=== PATIENT | male | born 1990 | race Caucasian/White ===

== ENCOUNTER → 2016-08-17 | Outpatient (CLI) | payer OTHER ==
[2016-01-16 03:23] VITALS: BP 157/84
[~2016-08-17] MED LIST: IOHEXOL 240 MG/ML 50ML VIAL. PO ONE; IOHEXOL 300 MG/ML 75 ML VIAL. IV ONE; IOHEXOL 350 MG/ML 50 ML VIAL. IV ONE; PANT40TA3 PO
[2016-08-17 16:56] LABS: BASO % 0 % (0-3); EOS % 1 % (0-3); HEMATOCRIT 43.3 % (39.0-53.0); HEMOGLOBIN 14.6 g/dL (13.0-17.5); LYMPH # 1.7 x10^3/uL (1.0-4.8); LYMPH % 33 % (24-48); MEAN CORPUSCULAR HEMOGLOBIN 29 pg (25-35); MEAN CORPUSCULAR HGB CONC 34 g/dL (31-37); MEAN CORPUSCULAR VOLUME 85 fL (79-100); MONO # 0.3 x10^3/uL (0.0-1.1); MONO % 6 % (0-9); NEUT # 3.2 x10^3uL (1.8-7.7); NEUT % 61 % (31-73); PLATELET COUNT 242 x10^3/uL (140-400); RED BLOOD COUNT 5.08 x10^6/uL (4.30-5.70); WHITE BLOOD COUNT 5.3 x10^3/uL (4.0-11.0)
[2016-08-17 17:05] LABS: ALBUMIN 4.6 g/dL (3.4-5.0); ALBUMIN/GLOBULIN RATIO 1.5 (1.0-1.7); CALCIUM 9.1 mg/dL (8.5-10.1); CREATININE 1.1 mg/dL (0.7-1.3); GFR 82.2; POTASSIUM 3.7 mmol/L (3.5-5.1); TOTAL BILIRUBIN 0.7 mg/dL (0.2-1.0); TOTAL PROTEIN 7.7 g/dL (6.4-8.2)
--- NOTE | 2016-08-17 18:34 | RAD ---
PROCEDURE CT abdomen and pelvis with contrast. HISTORY Epigastric abdominal pain with nausea TECHNIQUE Helical CT imaging of the abdomen and pelvis is performed after oral contrast and 75 cc Omnipaque 300 IV contrast. PQRS: One or more the following individualized dose reduction techniques were utilized for the study: 1. Automated exposure control. 2. Adjustment of the mA and/or kV according to patient size. 3. Use of iterative reconstruction technique. COMPARISON None. FINDINGS Lung bases are clear. Cardiac size normal. The liver, gallbladder, spleen, pancreas, adrenal glands, kidneys, and abdominal aortic caliber are normal. Stomach unremarkable. No dilated small bowel. The appendix is normal. No colon wall thickening. Contrast reaches rectosigmoid indicating there is no bowel obstruction. There is no abdominal adenopathy. There are subcentimeter mesenteric lymph nodes. The urinary bladder is normal, mildly distended. Prostate size normal. No pelvic free fluid. Bilateral inguinal lymph nodes are probably reactive. No acute bone abnormality. IMPRESSION No acute abdominal or pelvic abnormality. Electronically signed by: Mars Fermin MD (Aug 17, 2016 18:32:54)
== END | disposition home or self-care (01) ==
LOC: CT 16:29
PROVIDERS: ATTEND Family Medicine
DX: R10.84 Generalized abdominal pain (principal)
CPT/HCPCS: 36415; 74177; 80053; 82150; 83690; 85027; Q9966

== ENCOUNTER 2017-10-08 02:55 | Emergency (ER) | payer OTHER ==
[~2017-10-08] VITALS: Ht 180.3 cm; Wt 69.4 kg
[~2017-10-08 02:55] MED LIST changes: -IOHEXOL 240 MG/ML 50ML VIAL. PO ONE; -IOHEXOL 300 MG/ML 75 ML VIAL. IV ONE; -IOHEXOL 350 MG/ML 50 ML VIAL. IV ONE
[2017-10-08 03:08] VITALS: BP 142/88
--- NOTE | 2017-10-08 03:18 | PHYS DOC ---
Past History Past Medical History: No Pertinent History Additional Past Medical Histor: chest pain, hypokalemia Past Surgical History: No Surgical History Smoking: Non-smoker Alcohol Use: Occasionally Drug Use: None Adult General Chief Complaint Chief Complaint: INSECT BITE HPI HPI 27-year-old otherwise healthy male presents with a insect bite on his right inner thigh. He states he's been out at a shooting range further management been some bugs. He is concerned that the bite is red.[] Review of Systems Review of Systems Review of systems is as above otherwise unremarkable. Allergies Allergies Allergies Coded Allergies Type Severity Reaction Last Updated Verified No Known Drug Allergies 08/17/16 No Physical Exam Physical Exam Constitutional: Well developed, well nourished, no acute distress, non-toxic appearance. [] HENT: Normocephalic, atraumatic, bilateral external ears normal, oropharynx moist, no oral exudates, nose normal. [] Eyes: PERRLA, EOMI, conjunctiva normal, no discharge. [] Neck: Normal range of motion, no tenderness, supple, no stridor. [] Cardiovascular:Heart rate regular rhythm, no murmur [] Lungs & Thorax: Bilateral breath sounds clear to auscultation [] Abdomen: Bowel sounds normal, soft, no tenderness, no masses, no pulsatile masses. [] Skin: There is a dime size area of redness on the right upper inner thigh no central necrosis no induration no fluctuance no streaking. [] Back: No tenderness, no CVA tenderness. [] Extremities: No tenderness, no cyanosis, no clubbing, ROM intact, no edema. [] Neurologic: Alert and oriented X 3, normal motor function, normal sensory function, no focal deficits noted. [] Psychologic: Affect normal, judgement normal, mood normal. [] Current Patient Data Vital Signs Vital Signs Date Time Temp Pulse Resp B/P (MAP) Pulse Ox O2 Delivery O2 Flow Rate FiO2 10/08/17 03:08 98.1 113 20 97 EKG EKG [] Radiology/Procedures Radiology/Procedures [] Course & Med Decision Making Course & Med Decision Making Pertinent Labs and Imaging studies reviewed. (See chart for details) [] Dragon Disclaimer Dragon Disclaimer This electronic medical record was generated, in whole or in part, using a voice recognition dictation system. Departure Departure: Impression: Primary Impression: Insect bite Disposition: HOME, SELF-CARE Condition: STABLE Referrals: MONICA HINES DO (PCP) Patient Instructions: Insect Bite Additional Instructions: Return to the emergency department with any new or concerning symptoms. Problem Qualifiers Primary Impression: Insect bite Encounter type: initial encounter Qualified Codes: W57.XXXA - Bitten or stung by nonvenomous insect and other nonvenomous arthropods, initial encounter ELÍAS SEAMAN DO Oct 08, 2017 03:18
== END 2017-10-08 03:25 | disposition home or self-care (01) ==
LOC: ER 02:55
DX: S70.361A Insect bite (nonvenomous), right thigh, initial encounter (principal); W57.XXXA Bitten or stung by nonvenomous insect and other nonvenomous arthropods, initial encounter; Y93.89 Activity, other specified; Y99.8 Other external cause status; Y92.89 Other specified places as the place of occurrence of the external cause
CPT/HCPCS: 99281

== ENCOUNTER 2020-08-17 00:19 | Emergency (ER) | payer OTHER ==
[~2020-08-17] VITALS: Ht 180.3 cm; Wt 66.0 kg
--- NOTE | 2020-08-17 02:29 | PHYS DOC ---
Past History Past Medical History: No Pertinent History Additional Past Medical Histor: chest pain, hypokalemia Past Surgical History: No Surgical History Smoking: Non-smoker Alcohol Use: Occasionally Drug Use: None Adult General HPI HPI Patient is an otherwise healthy 29-year-old male who presents with concerns of color change on his right arm. States he did get some sun and had a sunburn but thought that the color was strange. States that it almost seemed like a dark red or purple. States that it was like that for couple hours and then went away. States that now is just light red and has some skin sloughing. Denies any recent travel, illnesses, fevers, chest pain, shortness of breath, abdominal pain, nausea, vomiting. Review of Systems Review of Systems Review of systems otherwise unremarkable except noted in HPI Allergies Allergies Allergies Coded Allergies Type Severity Reaction Last Updated Verified No Known Drug Allergies 08/17/16 No Physical Exam Physical Exam Constitutional: Well developed, well nourished, no acute distress, non-toxic appearance. [] Cardiovascular:Heart rate regular rhythm, no murmur [] Lungs & Thorax: Bilateral breath sounds clear to auscultation [] Abdomen: Bowel sounds normal, soft, no tenderness, no masses, no pulsatile masses. [] Skin: Warm, dry, no erythema, no rash. [] Back: No tenderness, no CVA tenderness. [] Extremities: Patient has mild redness and skin peeling on forearm and upper arm consistent with mild sunburn Neurologic: Alert and oriented X 3, normal motor function, normal sensory function, no focal deficits noted. [] Psychologic: Affect normal, judgement normal, mood normal. [] EKG EKG [] Radiology/Procedures Radiology/Procedures [] Heart Score C/O Chest Pain: No Risk Factors: Risk Factors: DM, Current or recent (<one month) smoker, HTN, HLP, family history of CAD, obesity. Risk Scores: Risk Factors: DM, Current or recent (<one month) smoker, HTN, HLP, family history of CAD, obesity. Course & Med Decision Making Course & Med Decision Making Patient is a 29-year-old male who presents with sunburn on right arm Vital signs not concerning. Physical exam noted above. Patient has mild sunburn on posterior right forearm and upper arm. Advised lotions and long sleeve shirts at home. Advised follow-up with primary care physician as needed. Gave return precautions to the ED. Patient grateful, verbalized understanding and agreed with plan of discharge. [] Dragon Disclaimer Dragon Disclaimer This electronic medical record was generated, in whole or in part, using a voice recognition dictation system. Departure Departure: Impression: Primary Impression: Sunburn Additional Impression: Rash and nonspecific skin eruption Disposition: 01 DC HOME SELF CARE/HOMELESS Condition: GOOD Referrals: MONICA HINES DO (PCP) Patient Instructions: Rash, [id number], Rashes-SportsMed, Sunburn, [id number] Additional Instructions: Please read all the attached information. Please use lotions to keep moisturized and longsleeve shirts until you follow-up with your primary care physician. Please call your primary care physician first thing in the morning to update on ED visit. Please come back to the emergency department immediately with new or concerning symptoms as discussed. Problem Qualifiers MATHEUS FLETCHER MD Aug 17, 2020 02:29
[2020-08-17 02:56] VITALS: BP 138/97
== END 2020-08-17 02:56 | disposition home or self-care (01) ==
LOC: ER 00:19
DX: L55.9 Sunburn, unspecified (principal); R21 Rash and other nonspecific skin eruption
CPT/HCPCS: 99281

== ENCOUNTER 2021-05-06 21:46 | Emergency (ER) | payer OTHER ==
[~2021-05-06] VITALS: Ht 180.3 cm; Wt 65.6 kg
--- NOTE | 2021-05-06 22:13 | PHYS DOC ---
Past History Past Medical History: Other Additional Past Medical Histor: chest pain, hypokalemia Past Surgical History: No Surgical History Smoking: Non-smoker Alcohol Use: Occasionally Drug Use: None Adult General Chief Complaint Chief Complaint: RAPID HEART RATE HPI HPI Patient sent otherwise healthy 30-year-old male with a past medical history of anxiety, who presents with a chief complaint of palpitations which started after drinking some C4 workout drink. States that a few hours ago he took a large dose as he was not working out and stated he did not feel it do anything so he took another dose. States that shortly after that he began feeling like his heart was racing. Denies any chest pain, shortness of breath, abdominal pain, nausea, vomiting. Review of Systems Review of Systems Review of systems otherwise unremarkable except noted in HPI Allergies Allergies Allergies Coded Allergies Type Severity Reaction Last Updated Verified No Known Drug Allergies 08/17/16 No Physical Exam Physical Exam Constitutional: Well developed, well nourished, no acute distress, non-toxic appearance. [] HENT: Normocephalic, atraumatic, bilateral external ears normal, oropharynx moist, no oral exudates, nose normal. [] Eyes: , conjunctiva normal, no discharge. [] Neck: Normal range of motion, no tenderness, supple, no stridor. [] Cardiovascular: Sinus tachycardia, rate of 125, QRS 92, QTc 429, no STEMI Lungs & Thorax: Bilateral breath sounds clear to auscultation [] Skin: Warm, dry, no erythema, no rash. [] Extremities: No tenderness, no cyanosis, no clubbing, ROM intact, no edema. [] Neurologic: Alert and oriented X 3, normal motor function, normal sensory function, no focal deficits noted. [] Psychologic: Affect normal, judgement normal, mood normal. [] EKG EKG [] Radiology/Procedures Radiology/Procedures [] Heart Score C/O Chest Pain: No Risk Factors: Risk Factors: DM, Current or recent (<one month) smoker, HTN, HLP, family history of CAD, obesity. Risk Scores: Risk Factors: DM, Current or recent (<one month) smoker, HTN, HLP, family history of CAD, obesity. Course & Med Decision Making Course & Med Decision Making Patient is a 30-year-old male who presents after drinking too much C4 stimulant preworkout supplement drink with palpitations Vital signs initially notable for tachycardia. Physical exam noted above. EKG noted above. Given Versed. On reassessment patient symptoms resolved, heart rate in the 90s and patient felt safe to discharge home. Discouraged use of preworkout supplements especially being sensitive to caffeine Advised to follow-up with primary care as needed. Gave return precautions to the ED. Patient grateful, verbalized understanding and agreed with plan of discharge. [] Dragon Disclaimer Dragon Disclaimer This electronic medical record was generated, in whole or in part, using a voice recognition dictation system. Departure Departure: Impression: Primary Impression: Sinus tachycardia Disposition: HOME / SELF CARE / HOMELESS Condition: IMPROVED Referrals: MONICA HINES DO (PCP) Patient Instructions: Nonspecific Tachycardia Additional Instructions: Thank you for coming into the emergency department tonight and allowing us to take care of you. Please read the attached information carefully to go over things we discussed. As we discussed please cease using any of those workout supplements and even increased caffeine as you stated yourself that you are very sensitive to these, to avoid further episodes of your tachycardia. Please follow-up with your primary care physician in the morning to update on your ED visit and return to the ED with new or concerning symptoms as we discussed. MATHEUS FLETCHER MD May 06, 2021 22:13
[2021-05-06 22:29] VITALS: BP 129/67
[2021-05-06] MEDS ORDERED: MIDAZOLAM HCL PF 5 MG/5 ML VIAL. IM ONE (22:30)
--- NOTE | 2021-05-06 23:22 | EKG ---
[address] [address] Test Date: 2021-05-06 Test Time: 21:59:17 Pat Name: SYLVIA CALDERA Department: Room: Gender: M Legal Secretary Receptionist: : [id number] Requested By: MATHEUS FLETCHER Order Number: [id number] Reading MD: Anthony Freedman Measurements Intervals [place] Rate: 125 P: 70 [place]: 170 QRS: 84 QRSD: 92 T: 32 QT: 296 QTc: 429 Interpretive Statements SINUS TACHYCARDIA Electronically Signed On 05-09-2021 12:03:29 [employer] OPERATOR by Anthony Freedman
== END 2021-05-06 22:44 | disposition home or self-care (01) ==
LOC: ER 21:46
DX: R00.0 Tachycardia, unspecified (principal); F41.9 Anxiety disorder, unspecified
CPT/HCPCS: 93005; 96372; 99283; J2250